=== PATIENT | female | born 1955 | race Hispanic/Latino ===

== ENCOUNTER 2021-10-28 14:59 | Observation (INO) | payer OTHER ==
[2021-10-28 15:29] LABS: #Basophils 0.1 10x3/uL (0.0-0.2); #Eosinphils 0.1 10x3/uL (0.0-0.5); #Monocytes 0.5 10x3/uL (0.0-1.1); #Neutrophils 8.1 10x3/uL (1.5-8.4); %Basophils 0.7 % (0.0-2.0); %Eosinophils 1.2 % (0.0-6.0); %Lymphocytes 11.5 % (18.0-47.0); %Monocytes 4.9 % (0.0-10.0); %Neutrophils 81.3 % (40.0-75.0); Hemoglobin 12.6 g/dL (12.0-15.5); Mean Corpuscular HGB CONC 31.8 g/dL (32.0-36.0); Mean Corpuscular Hemoglobin 29.3 pg (27.0-33.0); Mean Corpuscular Volume 92.1 fl (81.6-98.3); Mean Platelet Volume 10.4 fl (7.4-10.4); Platelet Count 241 10x3/uL (150-450)
[2021-10-28 15:39] LABS: ALT (SGPT) 25 U/L (8-55); AST (SGOT) 63 U/L (5-34); Albumin 4.4 g/dL (3.4-4.8); Alkaline Phosphatase 136 U/L (40-110); Anion Gap 19 mmol/L (10-20); BUN (Urea Nitrogen) 27 mg/dL (9.8-20.1); Bilirubin, Total 0.6 mg/dL (0.2-1.2); Calc. Creatinine Clearance 0 mL/min (70-130); Calcium 9.5 mg/dL (7.8-10.44); Carbon Dioxide 21 mmol/L (23-31); Chloride 100 mmol/L (98-107); Estimated GFR 35; Globulin 3.5 g/dL (2.4-3.5); Glucose 267 mg/dL (80-115); Lipase 68 U/L (8-78); Potassium 4.9 mmol/L (3.5-5.1); Protein, Total 7.9 g/dL (5.8-8.1); Sodium 135 mmol/L (136-145)
[2021-10-28] MEDS ORDERED: Iopamidol 370 76% 100 ML VIAL ONE (15:51)
[2021-10-28 16:41] LABS: Bilirubin Neg (Negative); Blood, Urine 10 (Negative); Clarity Clear (Clear); Glucose, Urine (Dipstick) 100 mg/dL (Negative); Ketone, Urine Negative (Negative); Leukocyte Negative (Negative); Nitrite Negative (Negative); Protein, Urine (Dipstick) 15 mg/dl (Neg-Trace); Specific Gravity, Urine 1.015 (1.002-1.036); Urobilinogen Normal mg/dL (Less than 2)
[2021-10-28 16:49] LABS: Bacteria/HPF Rare-Few HPF (None Seen); RBC/HPF 0-3 HPF (0-3); WBC/HPF 0-3 HPF (0-3)
[2021-10-28] MEDS ORDERED: Aspirin Chewable 81 MG TAB ONE (17:21)
[2021-10-28 18:29] LABS: Acetaminophen Less than 10.0 mcg/mL (10.0-30.0); Alcohol Less than 10 mg/dL (Less than 10); Salicylate Less than 8.0 mg/dL (15.0-30.0)
[2021-10-28 18:50] LABS: Troponin I Less than 0.010 ng/mL (< 0.028)
[2021-10-28] MEDS ORDERED: Ondansetron ODT 4 MG TAB PO PRN (18:51)
[2021-10-28] MEDS ORDERED: HumaLOG 300 UNITS/3 ML VIAL SC PRN ×2 (18:51)
[2021-10-28] MEDS ORDERED: Dextrose 50% Abboject 50 ML SYRINGE SLOW IVP PRN (18:51)
[2021-10-28] MEDS ORDERED: Dextrose 5% in Water 1,000 ML IV PRN (18:51)
[2021-10-28] MEDS ORDERED: hydrALAZINE 20 MG/ML VIAL SLOW IVP PRN (18:51)
[2021-10-28 21:41] LABS: Troponin I 0.017 ng/mL (< 0.028)
[2021-10-28] MEDS: Atorvastatin Calcium 40 MG TAB PO SCH (21:54)
[2021-10-28] MEDS: Acetaminophen 325 MG TAB PO PRN (21:54)
[2021-10-28] MEDS: Sodium Chloride 0.9% 1,000 ML IV SCH (21:55)
[2021-10-28 23:51] VITALS: BMI 39.5
[2021-10-28 23:59] LABS: SARS-CoV-2 NAA Rapid Test Not Detected (NotDetected)
[2021-10-29] MEDS ORDERED: traMADol HCl 50 MG TAB PO SCH ×2 (04:30→05:00)
[2021-10-29 05:21] LABS: #Eosinphils 0.2 10x3/uL (0.0-0.5); #Monocytes 0.5 10x3/uL (0.0-1.1); #Neutrophils 4.4 10x3/uL (1.5-8.4); %Basophils 0.5 % (0.0-2.0); %Eosinophils 2.5 % (0.0-6.0); %Lymphocytes 20.4 % (18.0-47.0); %Monocytes 8.2 % (0.0-10.0); %Neutrophils 68.1 % (40.0-75.0); Hemoglobin 11.5 g/dL (12.0-15.5); Mean Corpuscular Hemoglobin 29.5 pg (27.0-33.0); Mean Corpuscular Volume 89.5 fl (81.6-98.3); Platelet Count 192 10x3/uL (150-450); RBC Distribution Width 15.2 % (11.5-14.5); White Blood Cell (WBC) Count 6.5 10x3/uL (3.5-10.5)
[2021-10-29 05:39] LABS: ALT (SGPT) 20 U/L (8-55); AST (SGOT) 50 U/L (5-34); Albumin 3.6 g/dL (3.4-4.8); Alkaline Phosphatase 112 U/L (40-110); Anion Gap 11 mmol/L (10-20); BUN (Urea Nitrogen) 25 mg/dL (9.8-20.1); Bilirubin, Total 0.4 mg/dL (0.2-1.2); CK (CPK) 1212 U/L (29-168); Calc. Creatinine Clearance 93 mL/min (70-130); Calcium 9.2 mg/dL (7.8-10.44); Carbon Dioxide 26 mmol/L (23-31); Cardiac Risk 3.5 (Less than 4.5); Chloride 109 mmol/L (98-107); Cholesterol 137 mg/dl (< 200 Desired); Estimated GFR 55; Globulin 3.1 g/dL (2.4-3.5); Glucose 104 mg/dL (80-115); HDL Cholesterol 39 mg/dL (>60 Neg Risk); LDL Cholesterol, Calculated 72 mg/dL; Potassium 4.3 mmol/L (3.5-5.1); Protein, Total 6.7 g/dL (5.8-8.1); Sodium 142 mmol/L (136-145); Triglycerides 132 mg/dL (Less than 150)
[2021-10-29] MEDS ORDERED: Enoxaparin Sodium 30 MG/0.3 ML SYRINGE SC SCH (09:00)
[2021-10-29] MEDS: Sodium Chloride 0.9% 1,000 ML IV SCH ×2 (09:31→17:54)
[2021-10-29] MEDS: Acetaminophen 325 MG TAB PO PRN ×2 (09:32→18:35)
[2021-10-29] MEDS: Aspirin 81 mg Enteric Coated Tablet PO SCH (09:33)
[2021-10-29] MEDS ORDERED: Cyclobenzaprine 10 MG TAB PO PRN (11:57)
[2021-10-29] MEDS: traMADol HCl 50 MG TAB PO SCH ×2 (14:14→22:13)
[2021-10-29] MEDS: Gabapentin 400 MG CAP PO SCH ×2 (14:15→22:12)
[2021-10-29 19:37] LABS: Amphetamine Not Detected (NotDetected); Barbiturates Screen Not Detected (NotDetected); Benzodiazepine Screen Not Detected (NotDetected); Cocaine Metabolite Screen Not Detected (NotDetected); Methadone Not Detected (NotDetected); Methamphetamine Not Detected (NotDetected); Opiate Screen Not Detected (NotDetected); Oxycodone Screen Not Detected (NotDetected); Phencyclidine (PCP) Not Detected (NotDetected); THC/Cannabinoid Screen Not Detected (NotDetected); Tricyclic Screen Not Detected (NotDetected)
[2021-10-29] MEDS: Atorvastatin Calcium 40 MG TAB PO SCH (22:24)
[2021-10-30 03:46] LABS: #Basophils 0.1 10x3/uL (0.0-0.2); #Eosinphils 0.3 10x3/uL (0.0-0.5); #Monocytes 0.5 10x3/uL (0.0-1.1); #Neutrophils 3.1 10x3/uL (1.5-8.4); %Basophils 0.8 % (0.0-2.0); %Eosinophils 4.6 % (0.0-6.0); %Lymphocytes 32.4 % (18.0-47.0); %Monocytes 8.8 % (0.0-10.0); %Neutrophils 52.9 % (40.0-75.0); Hemoglobin 10.8 g/dL (12.0-15.5); Mean Corpuscular HGB CONC 32.2 g/dL (32.0-36.0); Mean Corpuscular Hemoglobin 29.1 pg (27.0-33.0); Mean Corpuscular Volume 90.3 fl (81.6-98.3); Mean Platelet Volume 9.8 fl (7.4-10.4); Platelet Count 162 10x3/uL (150-450); RBC Distribution Width 15.1 % (11.5-14.5); Red Blood Cell (RBC) Count 3.71 10x6/uL (3.90-5.03); White Blood Cell (WBC) Count 5.9 10x3/uL (3.5-10.5)
[2021-10-30] MEDS: Sodium Chloride 0.9% 1,000 ML IV SCH ×2 (03:54→08:57)
[2021-10-30 03:55] LABS: ALT (SGPT) 18 U/L (8-55); AST (SGOT) 48 U/L (5-34); Albumin 3.4 g/dL (3.4-4.8); Alkaline Phosphatase 112 U/L (40-110); Anion Gap 13 mmol/L (10-20); BUN (Urea Nitrogen) 17 mg/dL (9.8-20.1); Bilirubin, Total 0.6 mg/dL (0.2-1.2); CK (CPK) 1109 U/L (29-168); Calc. Creatinine Clearance 116 mL/min (70-130); Carbon Dioxide 23 mmol/L (23-31); Chloride 110 mmol/L (98-107); Estimated GFR 71; Glucose 112 mg/dL (80-115); Potassium 3.8 mmol/L (3.5-5.1); Protein, Total 6.4 g/dL (5.8-8.1); Sodium 142 mmol/L (136-145)
[2021-10-30] MEDS: Acetaminophen 325 MG TAB PO PRN ×2 (08:45→14:32)
[2021-10-30] MEDS: traMADol HCl 50 MG TAB PO SCH ×2 (08:47→14:31)
[2021-10-30] MEDS: Gabapentin 400 MG CAP PO SCH ×2 (08:47→14:31)
[2021-10-30] MEDS: Aspirin 81 mg Enteric Coated Tablet PO SCH (08:48)
[2021-10-30] MEDS ORDERED: Losartan 25 MG TAB PO SCH (09:00)
[2021-10-30] MEDS ORDERED: Enoxaparin Sodium 40 MG/0.4 ML SYRINGE SC SCH (09:00)
[2021-10-30 15:13] VITALS: BP 137/65; TEMP 98.1
== END 2021-10-30 14:55 | disposition home or self-care (01) ==
LOC: CSHERS 14:59 → CSHTELE 20:38
PROVIDERS: ADMIT Family Medicine; ATTEND Hospitalist
DX: G45.9 Transient cerebral ischemic attack, unspecified (principal); R53.1 Weakness; R47.81 Slurred speech; I11.9 Hypertensive heart disease without heart failure; E11.40 Type 2 diabetes mellitus with diabetic neuropathy, unspecified; E78.5 Hyperlipidemia, unspecified; Z79.82 Long term (current) use of aspirin; Z79.899 Other long term (current) drug therapy; R29.6 Repeated falls; N17.9 Acute kidney failure, unspecified; R74.8 Abnormal levels of other serum enzymes; E11.69 Type 2 diabetes mellitus with other specified complication; E66.9 Obesity, unspecified; Z68.39 Body mass index [BMI] 39.0-39.9, adult; M25.551 Pain in right hip; M62.82 Rhabdomyolysis; R29.90 Unspecified symptoms and signs involving the nervous system; Z20.822 Contact with and (suspected) exposure to COVID-19
CPT/HCPCS: 70450; 70496; 70498; 70551; 71045; 73522; 80053 ×3; 80061; 80306; 80307; 82550 ×3; 82962 ×3; 83690; 84484 ×2; 85025 ×3; 93005; 93306; 94760 ×2; 96372 ×2; 96374; 97116 ×2; 97530; 97535; 99285; G0378 ×4; U0002; 36415; 36416; 81003; 81015; J0360; J1650; J7050; Q9967